=== PATIENT | female | born 1985 | race Caucasian/White ===

== ENCOUNTER 2024-07-12 23:38 | Emergency (ER) | payer BC, MEDICARE ==
[~2024-07-12] VITALS: Ht 172.7 cm; Wt 86.4 kg
[2024-07-12 23:41] VITALS: BP 135/71; PULSE 82; RESP 16; TEMP 99; O2SAT 100
[2024-07-13] MEDS: ACETAMINOPHEN 325 MG TABLET PO ONE (00:34)
[2024-07-13] MEDS: AMOX TR/POT CLAV 875 MG/125 MG TABLET PO ONE (00:35)
[2024-07-13] MEDS: KETOROLAC TROMETHAMINE 30 MG/ML VIAL IM ONE (00:35)
[2024-07-13] MEDS: BENZOCAINE 10% 7 GM GEL TP ONE (00:39)
[2024-07-13] MEDS: BUPIVACAINE/EPI/PF 0.5% 30 ML VIAL ID ONE (00:39)
[2024-07-13] MEDS: CLINDAMYCIN HCL 150 MG CAPSULE PO ONE (00:43)
[2024-07-13] MEDS ORDERED: CLIN300C58 PO (01:11)
== END 2024-07-13 01:27 | disposition home or self-care (01) ==
LOC: EMS 23:38
DX: K02.9 Dental caries, unspecified (principal); F17.210 Nicotine dependence, cigarettes, uncomplicated
CPT/HCPCS: 99284; 64400; 96372; J3490; J1885; 99283